=== PATIENT | male | born 1965 | race Caucasian/White ===

== ENCOUNTER 2021-02-22 06:37 | Inpatient (IN) | payer OTHER ==
[~2021-02-22] VITALS: Ht 190.5 cm; Wt 108.9 kg
[~2021-02-22 06:37] MED LIST: COZAAR50 MG PO
[2021-02-22] MEDS ORDERED: BENICAR40 MG (06:45)
[2021-02-22] MEDS ORDERED: PERCOCET 5-3251 EACH (06:46)
[2021-02-22] MEDS ORDERED: DOLOGESIC 500-1 EACH (06:46)
--- NOTE | 2021-02-22 06:50 | NUR ---
PTE ALERTA Y ORIENTADO EN CRISTOBAL NEW ESFERAS, LLEGA AMBULANDO, REFIERE DOLOR EN EL AREA ANAL POR ABCESO EN AREA PERIANAL. PTE REFERIDO POR DR Kathi VIRK. SE UBICA EN AREA DE OBSERVACION.
--- NOTE | 2021-02-22 07:29 | NUR ---
PACIENTE EVALUADO POR EL MEDICO EN TURNO, SE VERIFICAN LAS ORDENES MEDICAS Y SE LE ORIENTA AL PACIENTE SOBRE LAS MISMAS. SE LE BARB LAS MUETRAS DE MARIBELL, SE CANALIZA Y SE LE COLOCA LOS IVF'S Y SE LE ADMINISTRAN LOS MEDICAMENTOS, GILBERTO LAS ORDENES MEDICAS.
[2021-02-23] MEDS ORDERED: PANTOPRAZOLE SO40 MG (14:06)
[2021-02-24] MEDS ORDERED: PERCOCET 5-3251 EACH PO (10:59)
== END 2021-02-24 11:59 | disposition home or self-care (01) | DRG 349 ==
LOC: ER 06:37 → SURH 10:37
PROVIDERS: ADMIT Surgery; ATTEND Surgery
PROC: 0D9Q0ZZ Drainage of Anus, Open Approach (ICD-10-PCS; principal; 2021-02-22)
DX: K61.0 Anal abscess (principal); K62.89 Other specified diseases of anus and rectum; Z20.822 Contact with and (suspected) exposure to COVID-19; I10 Essential (primary) hypertension

== ENCOUNTER 2021-05-18 06:28 | Day surgery (SDC) | payer OTHER ==
[~2021-05-18 06:28] MED LIST changes: +BENICAR40 MG; +BENICAR40 MG PO; +CLARITIN; +DOLOGESIC 500-1 EACH; +MAGNES PO; +PANTOPRAZOLE SO40 MG; +PERCOCET 5-3251 EACH; +PERCOCET 5-3251 EACH PO; +TAMS0.4C PO; +[UNRECOGNIZED DRUG - OTHER] PO
[2021-05-18] MEDS ORDERED: PERCOCET 5-3251 EACH PO (10:53)
[2021-05-18] MEDS ORDERED: COLACE100 MG PO (10:53)
== END 2021-05-18 19:05 | disposition home or self-care (01) ==
LOC: CIR.AMB 06:28
PROVIDERS: ATTEND Surgery
DX: K60.3 Anal fistula (principal); Z20.822 Contact with and (suspected) exposure to COVID-19